=== PATIENT | male | born 1985 | race Caucasian/White ===

== ENCOUNTER 2023-02-22 02:38 | Emergency (ER) | payer BC, SELFPAY ==
[2023-02-22 02:42] VITALS: BP 149/93; PULSE 57; RESP 18; TEMP 36.1; O2SAT 93; BMI 43.0
[2023-02-22 02:46] VITALS: O2SAT 96
--- NOTE | 2023-02-22 02:48 | W.ED.ABDPA2 ---
HPI - Abdominal Pain General: Chief Complaint: Abdominal Pain Stated Complaint: ABD Pain Time Seen by Provider: 02/22/23 02:40 Source: patient Mode of arrival: ambulatory Limitations: no limitations History of Present Illness: 37-year-old male states that he had eaten pizza rolls tonight around 11 started having GI distress he states he had 2 episodes of vomiting states he still has a burning sensation in his upper abdomen with some slight bandlike pain he rates his pain a 5 out of 10. He denies any worsening or improving factors. His grandfather is here and states he ate the same pizza rolls and has had similar symptoms. Associated Symptoms: Reports nausea and vomiting; Denies chills, dysuria and fever(s) Review of Systems Const: Denies: fever(s), chills, body aches or change in appetite Eyes: Denies: eye discomfort ENMT: Denies: throat pain or dental pain Card: Denies: chest pain Resp: Denies: dyspnea GI: Reports: abdominal pain, nausea and vomiting : Denies: dysuria Musc: Denies: neck pain or back pain Skin/Breast: Denies: rash Neuro: Denies: headache(s) PFSH ED PFSH: Family History Other Cancer Diabetes Social History Smoking and tobacco status: never smoked Alcohol intake: never Physical Exam Const: COMMON NORMALS: no acute distress, patient oriented x3 and healthy appearing HENMT: COMMON NORMALS: normocephalic and atraumatic HEAD & SCALP: normocephalic and atraumatic Eye: COMMON NORMALS: conjunctivae normal CONJUNCTIVA: Yes conjunctivae normal Neck/C-Spine: COMMON NORMALS: full ROM and supple Chest: COMMONS NORMALS: normal inspection of the chest and normal palpation of entire chest wall Resp: COMMON NORMALS: normal respiratory effort, No retractions, No use of accessory muscles and clear to auscultation bilaterally AUSCULTATION: clear to auscultation bilaterally Cardio: COMMON NORMALS: regular rate, regular rhythm and No murmurs present (Cardio) RATE: regular rate RHYTHM: regular rhythm GI: COMMON NORMALS: Normal to inspection, nondistended, normoactive bowel sounds present, Soft to palpation, non-tender and no masses PALPATION: Yes Soft to palpation Extremity: COMMON NORMALS: normal to inspection and full ROM Neuro: COMMON NORMALS: patient oriented x3, moves all extremities and no focal motor deficits Psych: COMMON NORMALS: mental status grossly normal, Normal thought process present and cooperative THOUGHT PROCESS: Normal thought process present Skin: COMMON NORMALS: no rashes or lesions noted and no wounds GENERAL SKIN EXAM: no rashes or lesions noted Course Vital Signs: Vital signs: Vital Signs Temperature 97.0 F L 02/22/23 02:42 Pulse Rate 58 L 02/22/23 02:54 Respiratory Rate 18 02/22/23 02:54 Blood Pressure 149/93 02/22/23 02:42 Pulse Oximetry 98 02/22/23 02:54 Oxygen Delivery Me thod Room Air 02/22/23 02:54 MDM - Abdominal Pain Medical Decision Making Patient presents here with abdominal pain is likely some gastritis he feels much improved after GI cocktail his abdominal exam is benign he has no signs of cholecystitis he is stable for discharge he is to follow-up with PCP and return if worsening. Medical Records I reviewed the patient's medical records. Lab Data I reviewed the patient's lab results. 02/22/23 02:50 02/22/23 02:50 Labs/Radiology: Laboratory Results WBC 11.3 10^3/uL (4.0-10.0) H 02/22/23 02:50 RBC 5.20 10^6/uL (4.1-5.3) 02/22/23 02:50 Hgb 15.4 g/dL (11.7-16.6) 02/22/23 02:50 Hct 47.0 % (42.0-52.0) 02/22/23 02:50 MCV 90.4 fl (80-94) 02/22/23 02:50 MCH 29.6 pg (28.0-34.0) 02/22/23 02:50 MCHC 32.8 g/dL (30.0-36.0) 02/22/23 02:50 RDW 12.5 % (12.1-15.1) 02/22/23 02:50 Plt Count 357 10^3/cmm (130-400) 02/22/23 02:50 MPV 9.5 fL (7.4-10.4) 02/22/23 02:50 Neut % (Auto) 82.9 % 02/22/23 02:50 Lymph % (Auto) 12.1 % 02/22/23 02:50 Sumner % (Auto) 3.5 % 02/22/23 02:50 Eos % (Auto) 0.4 % 02/22/23 02:50 Baso % (Auto) 0.7 % 02/22/23 02:50 Neut # (Auto) 9.33 10^3/uL (1.8-7.7) H 02/22/23 02:50 Lymph # (Auto) 1.4 10^3/uL (0.8-4.8) 02/22/23 02:50 Sumner # (Auto) 0.4 10^3/uL (0.2-0.9) 02/22/23 02:50 Eos # (Auto) 0.1 10^3/uL (0.0-0.8) 02/22/23 02:50 Baso # (Auto) 0.1 10^3/uL (0.0-0.1) 02/22/23 02:50 Nucleated RBC % (auto) 0 % 02/22/23 02:50 Nucleated RBCs # 0.0 /100WBC 02/22/23 02:50 Sodium 140 mmol/L (136-145) 02/22/23 02:50 Potassium 4.0 mmol/L (3.5-5.1) 02/22/23 02:50 Chloride 102 mmol/L (98-107) 02/22/23 02:50 Carbon Dioxide 26 mmol/L (22-29) 02/22/23 02:50 Anion Gap 16.0 (5-19) 02/22/23 02:50 BUN 14 mg/dL (6-20) 02/22/23 02:50 Creatinine 0.7 mg/dL (0.7-1.2) 02/22/23 02:50 GFR Calculation 128.3 mL/min (90-130) 02/22/23 02:50 Glucose 144 mg/dL (65-115) H 02/22/23 02:50 Calculated Osmolality 293 mOsm/kg (285-295) 02/22/23 02:50 Calcium 9.2 mg/dL (8.5-10.5) 02/22/23 02:50 Total Bilirubin 0.2 mg/dL (0.15-1.2) 02/22/23 02:50 AST 22 U/L (0-40) 02/22/23 02:50 ALT 53 U/L (0-41) H 02/22/23 02:50 Alkaline Phosphatase 63 U/L (40-130) 02/22/23 02:50 Total Protein 8.3 g/dL (6.6-8.7) 02/22/23 02:50 Albumin 4.6 g/dL (3.5-5.2) 02/22/23 02:50 Globulin 3.7 g/dL (1.3-4.6) 02/22/23 02:50 Lipase 28 U/L (13-60) 02/22/23 02:50 Discharge Plan Discharge Patient Disposition: Home Clinical Impression: Abdominal pain Condition: Stable Prescriptions: New Protonix 40 mg tablet,delayed release (DR/EC) 40 mg PO DAILY Qty: 60 0RF No Action methylprednisolone [Medrol (Nima)] 4 mg tablets,dose pack See Rx Instructions PO PER PKG DIR Qty: 21 0RF Rx Instructions: PO PER PKG DIR azithromycin [Zithromax Z-Nima] 250 mg tablet See Rx Instructions PO .COMPLEX Qty: 6 0RF Rx Instructions: For 250 mg dose pack: take 500 mg today (day 1), then 250 mg for 4 days (days 2-5) PO Discharge Orders: Discharge ED (Routine); Ordered 02/22/23 Ordered By: Jadon Jennings Referrals: Huong Bailey FNP [Primary Care Provider] - 1-3 days Discharge Diet: Advance as tolerated Discharge Activity: Resume usual activity Patient Instructions: Abdominal Pain (ED) Coding Level of Care Code ED [employer] for [employer]
[2023-02-22 02:54] VITALS: PULSE 58; RESP 18; O2SAT 98
[2023-02-22] MEDS: lidocaine 2% viscous 15 ML, aluminum-mag hydrox-simethicon 30 ML, sucralfate oral liq 1 GM PO (02:56)
[2023-02-22] MEDS: ondansetron 2 mg/ML SDV 2 mL 4 MG IVP (02:56)
[2023-02-22 02:59] LABS: Basophils # 0.1 10^3/uL (0.0-0.1); Basophils % 0.7 %; Eosinophils # 0.1 10^3/uL (0.0-0.8); Eosinophils % 0.4 %; Hemoglobin 15.4 g/dL (11.7-16.6); Lymphocytes # 1.4 10^3/uL (0.8-4.8); Lymphocytes % 12.1 %; Mean Corpuscular HGB Conc 32.8 g/dL (30.0-36.0); Mean Corpuscular Hemoglobin 29.6 pg (28.0-34.0); Mean Corpuscular Volume 90.4 fl (80-94); Mean Platelet Volume 9.5 fL (7.4-10.4); Monocytes # 0.4 10^3/uL (0.2-0.9); Monocytes % 3.5 %; Neutrophils # 9.33 10^3/uL (1.8-7.7); Neutrophils % 82.9 %; Nucleated Red Blood Cells % 0 %; Platelet Count 357 10^3/cmm (130-400); Red Cell Distribution Width 12.5 % (12.1-15.1); White Blood Count 11.3 10^3/uL (4.0-10.0)
[2023-02-22 03:18] LABS: Alanine Aminotransferase 53 U/L (0-41); Albumin Level 4.6 g/dL (3.5-5.2); Alkaline Phosphatase 63 U/L (40-130); Aspartate Amino Transferase 22 U/L (0-40); Blood Urea Nitrogen 14 mg/dL (6-20); Calcium 9.2 mg/dL (8.5-10.5); Carbon Dioxide 26 mmol/L (22-29); Chloride 102 mmol/L (98-107); Globulin 3.7 g/dL (1.3-4.6); Glomerular Filtration Rate 128.3 mL/min (90-130); Glucose 144 mg/dL (65-115); Lipase 28 U/L (13-60); Osmolality Calculated 293 mOsm/kg (285-295); Sodium 140 mmol/L (136-145); Total Bilirubin 0.2 mg/dL (0.15-1.2); Total Protein 8.3 g/dL (6.6-8.7)
[2023-02-22 03:37] VITALS: BP 143/97; PULSE 58; RESP 18; O2SAT 96
== END 2023-02-22 03:38 | disposition home or self-care (01) ==
PROVIDERS: Emergency Provider Emergency Medicine; PCP Nurse Practitioner Family
DX: R10.10 Upper abdominal pain, unspecified (principal)
CPT/HCPCS: 80053; 83690; 85025; 96374; 99284; J2405